=== PATIENT | male | born 1990 | race Caucasian/White ===

== ENCOUNTER 2018-08-01 23:37 | Observation (INO) | payer OTHER ==
[~2018-08-01] VITALS: Ht 175.3 cm; Wt 68.0 kg
[~2018-08-01 23:37] MED LIST: LISD20CA4 PO; LISD70CA5 PO
--- NOTE | 2018-08-01 23:48 | NUR ---
COUNT[place] AUDITOR: ONLINE COMMUNICATIONS MANAGER AWARE OF PT'S IRRATIC SPEECH/BEHAVIOR AND RESPONSE WHEN ASKED SI/HI QUESTIONS. PER ONLINE COMMUNICATIONS MANAGER, PT TO WAIT IN LOBBY
--- NOTE | 2018-08-02 00:25 | NUR ---
PT TO ROOM AT THIS TIME. PT BELONGINGS TAKEN INTO 1 OF 1 BELONGINGS BAGS. 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 I NEED A 7 DAY RECHARGE TO REVITALIZE MYSELF. 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 PT ERRATICALLY SPEAKING TO HIMSELF AND CONSISTENTLY STATING PHRASES RELATED TO "HOLY" AND "DEMON" BASIS. STATES THERE ARE ALWAYS VOICES IN HIS HEAD AND SOMETIMES THEY TELL HIM TO HURT HIMSELF.
[2018-08-02] MEDS ORDERED: ZIPRASIDONE 20 MG INJ IM ONE ×3 (00:29→00:30)
[2018-08-02 00:31] LABS: BASOPHILS # (AUTO) 0.04 x10^3/uL (0-0.1); BASOPHILS % (AUTO) 0 % (0-1); EOSINOPHILS # (AUTO) 0.11 x10^3/uL (0-0.4); EOSINOPHILS % (AUTO) 1 % (1-7); LYMPHOCYTES # (AUTO) 0.81 x10^3/uL (1-3.4); LYMPHOCYTES % (AUTO) 7 % (22-44); MD NO; MEAN CORPUSCULAR HEMOGLOBIN 32.5 pg (27.5-34.5); MEAN CORPUSCULAR HGB CONC 34.8 g/dL (33.2-36.2); MEAN CORPUSCULAR VOLUME 93.2 fL (81-97); MEAN PLATELET VOLUME 8.6 fL (7.4-10.4); MONOCYTES # (AUTO) 0.54 x10^3/uL (0.2-0.8); MONOCYTES % (AUTO) 5 % (2-9); NEUTROPHILS # (AUTO) 10.18 x10^3/uL (1.8-6.8); NEUTROPHILS % (AUTO) 87 % (42-75); PLATELET COUNT 292 x10^3/uL (130-400); RED BLOOD COUNT 3.59 x10^6/uL (4.38-5.82); RED CELL DISTRIBUTION WIDTH 13.3 % (9.4-14.8)
[2018-08-02 00:43] LABS: ALANINE AMINOTRANSFERASE 28 U/L (12-78); ALBUMIN 3.9 g/dL (3.4-5.0); ANION GAP 8 mmol/L (5-15); CALCIUM 8.7 mg/dL (8.5-10.1); CHLORIDE 106 mmol/L (98-107)
[2018-08-02 00:45] LABS: ALKALINE PHOSPHATASE 108 U/L (45-117); BILIRUBIN,TOTAL 1.1 mg/dL (0.2-1.0); CREATININE 1.82 mg/dL (0.7-1.3); SALICYLATE LEVEL < 1.7 mg/dL (2.8-20.0); TOTAL PROTEIN 7.7 g/dL (6.4-8.2)
[2018-08-02 00:46] LABS: ACETAMINOPHEN < 2 mcg/mL (10-30)
--- NOTE | 2018-08-02 00:50 | NUR ---
ONE BAG OF BELONGINGS STICKERED AND PLACED IN LOCKED CABINET FOR SAFE KEEPING. POC DISCUSSED. PT AWARE A UA IS NEEDED. PT STILL WITH BELLIGERENT SPEECH HOWEVER CALM AND COOPERATIVE. PT GIVEN URINAL. PT DENIES FURTHER NEEDS AT THIS TIME.
--- NOTE | 2018-08-02 01:45 | NUR ---
PT SLEEPING COMFORTABLY ON GURNEY. RR EVEN AND UNLABORED. NADN. SITTER IN HALLWAY.
--- NOTE | 2018-08-02 01:52 | NUR ---
PT HAS A BLISTER ON HIS L ARM. STATES "I WAS EATING SOUP IN THE SHOWER, TO CLEANSE ME OF ALL MY SINS, AND, DAMN IT, IT WAS SO HOT I SPILLED IT ALL OVER MYSELF." Addendum: 08/02/18 at 0241 by SONA PT HAS A BLISTER ON HIS L ARM. STATES "I WAS EATING SOUP IN THE SHOWER, TO CLEANSE ME OF ALL MY SINS, AND, DAMN IT, IT WAS SO HOT I SPILLED IT ALL OVER MYSELF." AWARE. AWAITING NEW ORDERS.
--- NOTE | 2018-08-02 02:41 | NUR ---
PT SLEEPING COMFORTABLY ON GURNEY. RR EVEN AND UNLABORED. NADN. SITTER IN HALLWAY.
--- NOTE | 2018-08-02 03:14 | NUR ---
PACKET FAXED TO [facility]
--- NOTE | 2018-08-02 04:02 | NUR ---
report from Lauro yeung. Pt resting. even rise and fall of chest observed. sitter at bedside
--- NOTE | 2018-08-02 04:03 | NUR ---
FOR SITTER ACCOMADATIONS PT MOVED ROOMS. ROLLER DOORS SECURED AND SITTER IN HALLWAY. REPORT TO KIMBERLY GARZA.
--- NOTE | 2018-08-02 04:51 | NUR ---
Report received from GREG Rangel. Requested urine sample from patient, patient is drowsy, closes eyes after urine sample requested despite multiple attempts. Sitter within full view of patient for patient safety.
[2018-08-02] MEDS ORDERED: SODIUM CHLORIDE 0.9% 1,000 ML IV SCH (05:30)
--- NOTE | 2018-08-02 05:50 | NUR ---
Patient awake, urine sample provided, cooperative with IV start and fluid infusion. Patient reports that he is hungry, milk and cereal and jose rafael crackers given as requested by patient. Patient ate all food provided, drank 250mL milk. Urinated 800mL clear yellow urine.
[2018-08-02 06:14] LABS: AMPHETAMINE SCREEN, URINE Positive (Negative); BARBITURATE SCREEN, URINE Negative (Negative); BENZODIAZEPINE SCREEN, URINE Negative (Negative); CANNABINOID SCREEN, URINE Negative (Negative); COCAINE SCREEN, URINE Negative (Negative); METHADONE SCREEN, URINE Negative (Negative); OPIATE SCREEN, URINE Negative (Negative)
--- NOTE | 2018-08-02 06:56 | NUR ---
Bedside report to GREG Mars. Patient resting in [facility] with eyes closed, respirations even and without labor, patient appears to be asleep.
--- NOTE | 2018-08-02 08:03 | NUR ---
PT RESTING ON GURNEY, ASSESMENT COMPLETED. IVF INFUSING. PT DENIES ANY SI. PT DEMONSTARTES DISORGANIZED SPEECH PATTERN. HOWEVER, SPEECH IS CLEAR, A&OX4, FOLLOWS COMMANDS. PT DEINES ANY SI. RESP EVEN AND UNLABORED, VSS, SKIN WARM/DRY/ELASTIC. SITTER IN PLACE, ROOM SECURED.
--- NOTE | 2018-08-02 08:42 | NUR ---
PT PROVIDED WITH MEAL TRAY.
--- NOTE | 2018-08-02 09:39 | NUR ---
PT RESTING ON [facility]. SITTER IN PLACE.
[2018-08-02 10:40] LABS: ALBUMIN 3.3 g/dL (3.4-5.0); ANION GAP 6 mmol/L (5-15); CALCIUM 8.7 mg/dL (8.5-10.1); CHLORIDE 113 mmol/L (98-107); CREATININE 1.64 mg/dL (0.7-1.3)
--- NOTE | 2018-08-02 10:52 | NUR ---
PT RESTING ON GURNEY WITH EYES CLOSED. RESP EVEN AND UNLABORED. NADN. SITTER IN PLACE.
[2018-08-02] MEDS ORDERED: POLYETHYLENE GLYCOL 17 GM PACKET PO PRN (12:30)
[2018-08-02] MEDS ORDERED: BISACODYL 10 MG SUPP PR PRN (12:30)
[2018-08-02] MEDS ORDERED: DOCUSATE 100 MG CAPSULE PO PRN (12:30)
[2018-08-02] MEDS ORDERED: hydrALAzine 20 MG/ML, 1ML IVPush PRN (12:30)
--- NOTE | 2018-08-02 12:31 | NUR ---
PT PROVIDED WITH MEAL TRAY. SITTER IN PLACE.
--- NOTE | 2018-08-02 13:02 | NUR ---
Packet faxed to [facility]
--- NOTE | 2018-08-02 13:13 | NUR ---
PT RESTING ON [employer]. STATES HE IS HAVING PAIN. 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 IT'S A PROFESSION, [employer]." PT STATED HEN WANTS PAIN MEDS AND SOMETHING TO HELP HIM SLEEP. WILL MEDICATE PRN PER ORDER FOR PAIN AND ANXIETY. SITTER IN PLACE.
[2018-08-02] MEDS ORDERED: ACETAMINOPHEN 325 MG TABLET ONE (13:18)
[2018-08-02] MEDS ORDERED: LORazepam 0.5MG TABLET ONE (13:18)
[2018-08-02] MEDS ORDERED: NICOTINE 7 MG/24 HR PATCH.TD24 ONE (13:21)
[2018-08-02] MEDS: NICOTINE 7 MG/24 HR PATCH.TD24 TD SCH (13:23)
[2018-08-02] MEDS: ACETAMINOPHEN 325 MG TABLET PO PRN (13:24)
[2018-08-02] MEDS: LORazepam 0.5MG TABLET PO PRN (13:24)
--- NOTE | 2018-08-02 13:25 | NUR ---
PT PROVIDED WITH DINH, ENCOURAGED EXTRA FLUID INTAKE.
--- NOTE | 2018-08-02 16:40 | NUR ---
MEAL TRAY PROVIDED TO JENNIFER LYONS. SITTER IN PLACE WITH EYES ON.
--- NOTE | 2018-08-02 18:18 | NUR ---
PT RESTING COMFORTABLY ON GURNEY, SITTER IN PLACE. PROVIDED WITH CRACKERS AND JUICE.
--- NOTE | 2018-08-02 19:00 | NUR ---
PT HANDOFF REPORT TO GREG ACOSTA.
--- NOTE | 2018-08-02 19:19 | NUR ---
RECIEVED REPORT FROM ISMAEL GARZA. PT AMBULATED STEADILY TO BATHROOM. SITTER AT DOOR FOR FREQUENT OBS. REQUESTED COUGH DROPS HAVE BEEN ORDERED, HAVE NOT ARRIVED YET. WILL CONTINUE TO MONITOR.
--- NOTE | 2018-08-02 20:19 | NUR ---
PT RESTING IN BED WITH EYES CLOSED. SITTER AT DOOR. WILL CONTINUE TO MONITOR.
--- NOTE | 2018-08-02 21:27 | NUR ---
pt has been mumbling to himself off and on. pt denies any SI AT THIS TIME. PT GIVEN CRACKERS AND WATER PER HIS REQUEST. SITTER AT DOOR FOR FREQUENT OBS. VSS
--- NOTE | 2018-08-02 22:21 | NUR ---
pt resting in bed with eyes closed. pt given water per pt request. sitter at door for obs.
--- NOTE | 2018-08-02 23:05 | NUR ---
pt resting in bed with eyes closed. siter at door
--- NOTE | 2018-08-03 00:36 | NUR ---
pt continues to rest in bed. no stated needs at this time. sitter remains on watch of pt
--- NOTE | 2018-08-03 01:23 | NUR ---
PT RESTING IN BED. PT GIVEN CRACKER PER PT REQUEST. SITTER AT DOOR. WILL CONTINUE TO MONITOR .
--- NOTE | 2018-08-03 02:10 | NUR ---
PT CONTINUES TO REST IN BED. SITTER AT DOOR. NO CURRENT REQUESTS AT THIS TIME.
--- NOTE | 2018-08-03 03:14 | NUR ---
PT GIVEN FOOD AND JUICE AND ORDERED THROAT LOZENGE PER PT REQUEST. PT HAS BEEN RESTING CALMLY IN BED. SITTER AT DOOR.
--- NOTE | 2018-08-03 04:01 | NUR ---
PT RESTING IN BED WITH EVEN RESP. DOZING OFF AND ON. SITTER AT DOOR.
--- NOTE | 2018-08-03 05:15 | NUR ---
PT CONTINUES TO REST IN BED. PT UP TO BATHROOM X1. SITTER AT DOOR FOR FREQUENT OBS.
[2018-08-03 05:36] LABS: ANION GAP 8 mmol/L (5-15); CALCIUM 8.5 mg/dL (8.5-10.1); CHLORIDE 109 mmol/L (98-107); CREATININE 1.38 mg/dL (0.7-1.3)
[2018-08-03 05:52] LABS: BASOPHILS # (AUTO) 0.03 x10^3/uL (0-0.1); BASOPHILS % (AUTO) 1 % (0-1); EOSINOPHILS # (AUTO) 1.12 x10^3/uL (0-0.4); EOSINOPHILS % (AUTO) 17 % (1-7); LYMPHOCYTES % (AUTO) 23 % (22-44); MD NO; MEAN CORPUSCULAR HEMOGLOBIN 31.9 pg (27.5-34.5); MEAN CORPUSCULAR HGB CONC 33.9 g/dL (33.2-36.2); MEAN CORPUSCULAR VOLUME 94.1 fL (81-97); MEAN PLATELET VOLUME 9.1 fL (7.4-10.4); MONOCYTES # (AUTO) 0.41 x10^3/uL (0.2-0.8); MONOCYTES % (AUTO) 6 % (2-9); NEUTROPHILS # (AUTO) 3.45 x10^3/uL (1.8-6.8); NEUTROPHILS % (AUTO) 53 % (42-75); PLATELET COUNT 231 x10^3/uL (130-400); RED BLOOD COUNT 3.62 x10^6/uL (4.38-5.82); RED CELL DISTRIBUTION WIDTH 13.3 % (9.4-14.8)
--- NOTE | 2018-08-03 06:15 | NUR ---
PT RESTING IN BED, BREAKFAST ORDERED. WILL CONTINUE TO MONITOR. SITTER AT DOOR.
[2018-08-03] MEDS ORDERED: LORazepam 0.5MG TABLET ONE (06:20)
[2018-08-03] MEDS ORDERED: ACETAMINOPHEN 325 MG TABLET ONE (06:20)
[2018-08-03] MEDS: ACETAMINOPHEN 325 MG TABLET PO PRN ×2 (06:28→16:26)
[2018-08-03] MEDS: LORazepam 0.5MG TABLET PO PRN ×3 (06:28→21:07)
--- NOTE | 2018-08-03 06:30 | NUR ---
PT MEDICATED WITH ORDERED ATIVAN FOR STATED ANXIETY AND TYLENOL FOR BODY PAIN.
--- NOTE | 2018-08-03 06:34 | NUR ---
IV REMOVED PER CHAIM BENITEZ. PT HAS BEEN EATING AND DRINKING AND VSS.
--- NOTE | 2018-08-03 06:59 | NUR ---
REPORT TO JENIFFER GARZA.
--- NOTE | 2018-08-03 07:01 | NUR ---
Loki estrada in [facility] - 08/03/18 at 0701 by VÍCTOR REPORT TO JENIFFER COSTA
--- NOTE | 2018-08-03 08:46 | NUR ---
PT PROVIDED WITH MEAL TRAY, NO ACUTE S/S OF DISTRESS. DENIES FURTHER NEEDS AT THIS TIME
--- NOTE | 2018-08-03 09:10 | NUR ---
REPORT RECEIVED FROM GREG SWIFT, PATIENT SAFE IN [facility], CARE ASSUMED AT THIS TIME, SITTER OUTSIDE ROOM
--- NOTE | 2018-08-03 11:03 | NUR ---
patient remains safe in bed, no distress, no needs at this time, VSS on room air, PWD, sitter outside room at all times.
--- NOTE | 2018-08-03 13:54 | NUR ---
patient given lunch, resting in bed now, report given to Floor RN, patient updated of transfer plan, safety maintained, sitter outside room continuously.
--- NOTE | 2018-08-03 13:55 | NUR ---
Received SBAR report from GREG Marin. Pt will be transported by ER staff to room [id number]
[2018-08-03] MEDS ORDERED: ZIPRASIDONE 20 MG INJ IM PRN (16:00)
[2018-08-03] MEDS: NICOTINE 7 MG/24 HR PATCH.TD24 TD SCH (17:07)
[2018-08-03 19:49] VITALS: BP 119/74
[2018-08-04] MEDS: LORazepam 0.5MG TABLET PO PRN ×3 (05:09→20:15)
[2018-08-04 09:06] LABS: ALBUMIN 3.2 g/dL (3.4-5.0); ANION GAP 6 mmol/L (5-15); CALCIUM 9.1 mg/dL (8.5-10.1); CHLORIDE 107 mmol/L (98-107)
[2018-08-04] MEDS: NICOTINE 7 MG/24 HR PATCH.TD24 TD SCH (13:03)
[2018-08-04] MEDS: ZIPRASIDONE 20MG CAPSULE PO SCH (16:43)
[2018-08-04 20:20] VITALS: BP 130/79
[2018-08-05] MEDS: LORazepam 0.5MG TABLET PO PRN ×3 (05:32→19:57)
[2018-08-05] MEDS: ZIPRASIDONE 20MG CAPSULE PO SCH ×2 (07:54→16:39)
[2018-08-05 07:56] VITALS: BP 142/86
[2018-08-05] MEDS: NICOTINE 7 MG/24 HR PATCH.TD24 TD SCH (15:46)
[2018-08-05 19:52] VITALS: BP 133/82
[2018-08-05] MEDS: ACETAMINOPHEN 325 MG TABLET PO PRN (19:57)
[2018-08-05] MEDS ORDERED: TEMAZEPAM 15 MG CAPSULE PO ONE (22:30)
[2018-08-06] MEDS: ZIPRASIDONE 20MG CAPSULE PO SCH ×2 (08:13→17:00)
[2018-08-06 08:20] VITALS: BP 129/89
[2018-08-06 08:59] LABS: ALBUMIN 3.5 g/dL (3.4-5.0); ANION GAP 7 mmol/L (5-15); CHLORIDE 108 mmol/L (98-107); CREATININE 1.52 mg/dL (0.7-1.3)
[2018-08-06] MEDS: LORazepam 0.5MG TABLET PO PRN ×3 (10:36→18:53)
[2018-08-06] MEDS: NICOTINE 7 MG/24 HR PATCH.TD24 TD SCH (14:00)
[2018-08-06] MEDS ORDERED: IBUPROFEN 200 MG TABLET PO PRN (16:30)
[2018-08-06 19:39] VITALS: BP 127/90
[2018-08-07] MEDS: LORazepam 0.5MG TABLET PO PRN ×3 (00:43→15:23)
[2018-08-07 07:50] VITALS: BP 113/74
[2018-08-07] MEDS: ZIPRASIDONE 20MG CAPSULE PO SCH ×2 (07:54→17:27)
[2018-08-07] MEDS: NICOTINE 7 MG/24 HR PATCH.TD24 TD SCH (12:30)
[2018-08-07] MEDS ORDERED: LORazepam 0.5MG TABLET PO ONE (18:30)
[2018-08-07 19:48] VITALS: BP 117/76
[2018-08-08] MEDS: LORazepam 1MG TABLET PO PRN ×3 (03:45→16:50)
[2018-08-08 07:40] VITALS: BP 111/65
[2018-08-08] MEDS: ZIPRASIDONE 20MG CAPSULE PO SCH ×2 (08:38→16:49)
[2018-08-08] MEDS: NICOTINE 7 MG/24 HR PATCH.TD24 TD SCH (16:48)
[2018-08-08 20:29] VITALS: BP 126/76
[2018-08-09] MEDS: LORazepam 1MG TABLET PO PRN ×3 (04:33→18:38)
[2018-08-09 07:30] VITALS: BP 113/80
[2018-08-09] MEDS: ZIPRASIDONE 20MG CAPSULE PO SCH ×2 (07:33→16:37)
[2018-08-09] MEDS: NICOTINE 7 MG/24 HR PATCH.TD24 TD SCH (12:17)
[2018-08-09 19:53] VITALS: BP 139/72
[2018-08-10] MEDS: LORazepam 1MG TABLET PO PRN ×3 (00:12→16:32)
[2018-08-10 07:41] VITALS: BP 126/76
[2018-08-10] MEDS: ZIPRASIDONE 20MG CAPSULE PO SCH ×2 (07:49→16:32)
[2018-08-10] MEDS: NICOTINE 7 MG/24 HR PATCH.TD24 TD SCH (13:27)
[2018-08-10 19:39] VITALS: BP 125/83
[2018-08-10] MEDS: ACETAMINOPHEN 325 MG TABLET PO PRN (20:51)
[2018-08-11] MEDS: LORazepam 1MG TABLET PO PRN ×3 (00:04→14:43)
[2018-08-11 08:00] VITALS: BP 101/61
[2018-08-11] MEDS: ARIPIPRAZOLE 10 MG TABLET PO SCH (08:10)
[2018-08-11] MEDS: NICOTINE 7 MG/24 HR PATCH.TD24 TD SCH (14:43)
[2018-08-11 19:59] VITALS: BP 125/90
[2018-08-12] MEDS: LORazepam 1MG TABLET PO PRN ×3 (00:02→14:08)
[2018-08-12] MEDS: ARIPIPRAZOLE 10 MG TABLET PO SCH (07:52)
[2018-08-12 08:00] VITALS: BP 122/77
[2018-08-12] MEDS: NICOTINE 7 MG/24 HR PATCH.TD24 TD SCH (14:11)
[2018-08-12 19:54] VITALS: BP 117/69
[2018-08-13] MEDS: LORazepam 1MG TABLET PO PRN ×4 (00:02→21:18)
[2018-08-13 08:00] VITALS: BP 104/67
[2018-08-13] MEDS: ARIPIPRAZOLE 10 MG TABLET PO SCH (08:09)
[2018-08-13] MEDS: NICOTINE 7 MG/24 HR PATCH.TD24 TD SCH (12:30)
[2018-08-13 19:42] VITALS: BP 136/72
[2018-08-13] MEDS: ACETAMINOPHEN 325 MG TABLET PO PRN (20:52)
[2018-08-14] MEDS: LORazepam 1MG TABLET PO PRN ×4 (00:06→20:02)
[2018-08-14 07:35] VITALS: BP 112/72
[2018-08-14] MEDS: ARIPIPRAZOLE 10 MG TABLET PO SCH (08:08)
[2018-08-14] MEDS: NICOTINE 7 MG/24 HR PATCH.TD24 TD SCH (13:33)
[2018-08-14] MEDS ORDERED: ALUMINUM/MAG/SIMETHICONE 30 ML UDC PO PRN (19:00)
[2018-08-14 19:52] VITALS: BP 123/79
[2018-08-15] MEDS: LORazepam 1MG TABLET PO PRN ×3 (00:15→13:45)
[2018-08-15] MEDS: ARIPIPRAZOLE 10 MG TABLET PO SCH (07:48)
[2018-08-15 08:00] VITALS: BP 103/63
[2018-08-15] MEDS ORDERED: ACET325T14 PO (13:24)
[2018-08-15] MEDS ORDERED: ZIPR20VI IM (13:24)
[2018-08-15] MEDS ORDERED: LORA-446 PO (13:24)
[2018-08-15] MEDS ORDERED: ARIP10TA33 PO (13:24)
[2018-08-15] MEDS ORDERED: NICO-485 TD (13:24)
[2018-08-15] MEDS ORDERED: IBUP-1484 PO (13:24)
== END 2018-08-15 14:00 ==
LOC: ED 08-02 02:57 → EDIP 08-02 02:58 → 2N 08-03 14:53
PROVIDERS: ADMIT Hospitalist; ATTEND Hospitalist
DX: F23 Brief psychotic disorder (principal); F15.20 Other stimulant dependence, uncomplicated; D72.829 Elevated white blood cell count, unspecified; F12.90 Cannabis use, unspecified, uncomplicated; F17.210 Nicotine dependence, cigarettes, uncomplicated; F90.9 Attention-deficit hyperactivity disorder, unspecified type; Z91.14 Patient's other noncompliance with medication regimen; Z82.49 Family history of ischemic heart disease and other diseases of the circulatory system
CPT/HCPCS: 36415; 80048; 80053; 80307; 80329; 82040; 84443; 85025; 93005; 96360; 96361; 96372; 99284; G0378; J3486; J7030; G0480

== ENCOUNTER 2018-08-28 21:05 | Emergency (ER) | payer SELFPAY ==
[~2018-08-28] VITALS: Ht 175.3 cm; Wt 71.8 kg
[~2018-08-28 21:05] MED LIST changes: +ACET325T14 PO; +ARIP10TA33 PO; +IBUP-1484 PO; +LORA-446 PO; +NICO-485 TD; +ZIPR20VI IM
[2018-08-28 21:07] VITALS: BP 158/89
--- NOTE | 2018-08-28 21:33 | NUR ---
PT PRESENTS TO ED WITH C/O "I THINK I HAVE WOUND ON MY LEG, BUT LIKE ITS NOT ACTUALLY THERE. I GOT IT DEMON HUNTING. YES! ITS A REAL THING." PT DC ABOUT A WEEK AGO FROM [facility]. SPOKE WITH [facility] LO AND OBTAINED D/C MEDS. ERMD AWARE. PT STATES LAST TOOK MEDS ABOUT A WEEK AGO.
[2018-08-28] MEDS ORDERED: ZIPRASIDONE 20MG CAPSULE ONE (21:45)
--- NOTE | 2018-08-28 21:50 | NUR ---
PT MEDICATED PER SEP. RIGHTS VERIFIED PRIOR. 3P'S ADDRESSED.
--- NOTE | 2018-08-28 21:58 | NUR ---
REPORT FROM GREG MARINO
--- NOTE | 2018-08-28 21:59 | NUR ---
REPORT TO GREG COELHO.
[2018-08-28] MEDS ORDERED: ZIPRASIDONE 20MG CAPSULE PO ONE (22:00)
--- NOTE | 2018-08-28 22:31 | NUR ---
DC EDUCATION PROVIDED, PT DEMONSTRATES UNDERSTANDING. PT AMBULATED STEADILY TO DC WITH RN. PT STATES HE "IS ON THE STREETS". PT DRESSED APPROPRIATELY FOR WEATHER. PT REFUSING SANDWICH.
== END 2018-08-28 22:34 | disposition home or self-care (01) ==
LOC: ED 21:53
DX: F15.959 Other stimulant use, unspecified with stimulant-induced psychotic disorder, unspecified (principal); F22 Delusional disorders
CPT/HCPCS: 99284

== ENCOUNTER 2018-09-05 02:10 | Emergency (ER) | payer SELFPAY ==
[~2018-09-05] VITALS: Ht 175.3 cm; Wt 68.0 kg
[2018-09-05 02:15] VITALS: BP 144/88
--- NOTE | 2018-09-05 02:31 | NUR ---
PT TO ROOM C/O RIGHT THIGH PAIN PT ALSO STATES THAT HE IS OFF MEDS AND NEEDS MEDS,
[2018-09-05] MEDS ORDERED: KETOROLAC 30 MG/1 ML ONE (02:55)
[2018-09-05] MEDS ORDERED: METHOCARBAMOL 750 MG TABLET ONE (02:55)
[2018-09-05] MEDS ORDERED: KETOROLAC 30 MG/1 ML IM ONE (03:00)
[2018-09-05] MEDS ORDERED: METHOCARBAMOL 750 MG TABLET PO ONE (03:00)
--- NOTE | 2018-09-05 04:04 | NUR ---
Patient/Caregiver given discharge instructions and they have confirmed that they understand the instructions. Patient ambulatory with steady gait.
== END 2018-09-05 04:05 | disposition home or self-care (01) ==
LOC: ED 03:50
DX: M79.651 Pain in right thigh (principal); R05 Cough; Z76.0 Encounter for issue of repeat prescription; F17.200 Nicotine dependence, unspecified, uncomplicated
CPT/HCPCS: 71046; 96372; 99283; J1885

== ENCOUNTER 2018-09-10 12:14 | Emergency (ER) | payer MEDICAID ==
[~2018-09-10] VITALS: Ht 177.8 cm; Wt 150.0 kg
[2018-09-10] MEDS ORDERED: LORazepam 1MG TABLET ONE (12:25)
[2018-09-10] MEDS ORDERED: LORazepam 1MG TABLET PO ONE (12:30)
[2018-09-10] MEDS ORDERED: PLEASE ENTER HEIGHT AND WEIGHT MC SCH (13:00)
[2018-09-10 13:04] LABS: AMPHETAMINE SCREEN, URINE Negative (Negative); BARBITURATE SCREEN, URINE Negative (Negative); BENZODIAZEPINE SCREEN, URINE Negative (Negative); CANNABINOID SCREEN, URINE Negative (Negative); COCAINE SCREEN, URINE Negative (Negative); METHADONE SCREEN, URINE Negative (Negative); OPIATE SCREEN, URINE Negative (Negative)
[2018-09-10 13:05] LABS: BASOPHILS # (AUTO) 0.03 x10^3/uL (0-0.1); BASOPHILS % (AUTO) 0 % (0-1); EOSINOPHILS # (AUTO) 0.04 x10^3/uL (0-0.4); EOSINOPHILS % (AUTO) 0 % (1-7); LYMPHOCYTES % (AUTO) 9 % (22-44); MD NO; MEAN CORPUSCULAR HGB CONC 33.1 g/dL (33.2-36.2); MEAN CORPUSCULAR VOLUME 93.7 fL (81-97); MEAN PLATELET VOLUME 8.3 fL (7.4-10.4); MONOCYTES # (AUTO) 0.39 x10^3/uL (0.2-0.8); MONOCYTES % (AUTO) 3 % (2-9); NEUTROPHILS % (AUTO) 87 % (42-75); PLATELET COUNT 424 x10^3/uL (130-400); RED CELL DISTRIBUTION WIDTH 13.5 % (9.4-14.8)
[2018-09-10 13:10] VITALS: BP 154/87
[2018-09-10 13:16] LABS: ALANINE AMINOTRANSFERASE 42 U/L (12-78); ANION GAP 6 mmol/L (5-15); CALCIUM 9.3 mg/dL (8.5-10.1); CHLORIDE 110 mmol/L (98-107); CREATININE 1.84 mg/dL (0.7-1.3)
[2018-09-10 13:18] LABS: ALKALINE PHOSPHATASE 104 U/L (45-117); BILIRUBIN,TOTAL 0.4 mg/dL (0.2-1.0); TOTAL PROTEIN 8.3 g/dL (6.4-8.2)
[2018-09-10] MEDS ORDERED: ACETAMINOPHEN 500 MG TABLET PO ONE (14:00)
== END 2018-09-10 14:52 ==
LOC: ED 12:19
DX: R51 Headache (principal); T50.905A Adverse effect of unspecified drugs, medicaments and biological substances, initial encounter; F41.9 Anxiety disorder, unspecified; N18.9 Chronic kidney disease, unspecified; Y92.9 Unspecified place or not applicable
CPT/HCPCS: 36415; 80053; 80307; 85025; 93005; 99284